=== PATIENT | female | born 1945 | race Caucasian/White ===

== ENCOUNTER 2020-08-28 10:41 | Day surgery (SDC) | payer MEDICARE, OTHER ==
[~2020-08-28] VITALS: Ht 157.5 cm; Wt 74.2 kg
[2020-08-28] VITALS (9 sets, daily range): BP systolic 104–140; BP diastolic 67–91; PULSE 63–82; TEMP 98.1
[2020-08-28] MEDS ORDERED: HCTZ12.5TAB PO (11:37)
[2020-08-28] MEDS ORDERED: COZAAR100 MG PO (11:37)
[2020-08-28] MEDS ORDERED: LEXAPRO 10MG10 MG PO (11:37)
[2020-08-28] MEDS ORDERED: TOPROL XL 50MG50 MG PO (11:37)
[2020-08-28] MEDS ORDERED: ASPIRIN E.C. 8181 MG PO (11:38)
[2020-08-28] MEDS ORDERED: TYLENOL PM EXTR1 TA1 PO (11:38)
[2020-08-28] MEDS ORDERED: PREDNISONE10 MG PO (11:39)
[2020-08-28 12:03] LABS: HEMATOCRIT 41.2 % (37.0-47.0); HEMOGLOBIN 14.4 g/dl (12.5-16.0); MEAN CELL VOLUME 92 fl (80.0-100.0); MEAN CORPUSCULAR HEMOGLOBIN 32 pg (27.0-31.0); MEAN CORPUSCULAR HGB CONC 35 g/dl (33.0-37.0); MEAN PLATELET VOLUME 8.3 fl (7.4-10.4); PLATELET COUNT 290 K/mm3 (130-400); REDCELL DISTRIBUTION WIDTH-CV 13.3 % (11.5-14.5)
[2020-08-28 12:07] LABS: PROTHROMBIN TIME 10.6 SECONDS (9.7-12.8)
[2020-08-28 12:10] LABS: PARTIAL THROMBOPLASTIN TIME 27.1 SECONDS (26.0-37.0)
[2020-08-28 12:19] LABS: CALCIUM 10.3 mg/dL (8.4-10.2); CREATININE, serum 0.84 (0.52-1.25); POTASSIUM 4.5 mmol/L (3.4-5.0)
--- NOTE | 2020-08-28 13:42 | NUR ---
SEE MEREGE FOR ALL MEDICATION ADMIN. TIMES, INTRA AND POST SEDATION ASSESSMENTS
--- NOTE | 2020-08-28 14:10 | NUR ---
Pt resting comfortably in bed. Drowsy, but wakes easily to name. Free of complaints at this time.
--- NOTE | 2020-08-28 14:30 | NUR ---
Pt's called and updated on pt's status per pt's request. Pt more alert, wakes as nurse enters room.
[2020-08-28] MEDS ORDERED: NORVASC 5MG5 MG/TAB PO (15:43)
[2020-08-28] MEDS ORDERED: PREDNISONE20 MG PO (15:47)
[2020-08-28] MEDS ORDERED: COZAAR 50MG50 MG/TAB PO (15:47)
--- NOTE | 2020-08-28 17:00 | NUR ---
DC instructions reviewed with pt in room, and again with at car. Pt was assisted out by wheelchair with personal belongings. Air was removed from TR band in 2-4 ml increments without issue or bleeding. Site dressed with folded 2x2 and covered with bandaid and wrapped with coban. IV was DC'd with catheter intact, and bleeding controlled at site.
== END 2020-08-28 17:02 | disposition home or self-care (01) ==
LOC: COL.CAR 10:41
PROVIDERS: Internal Medicine Cardiovascular Disease
DX: I25.10 Atherosclerotic heart disease of native coronary artery without angina pectoris (principal); Z88.0 Allergy status to penicillin; Z79.82 Long term (current) use of aspirin; Z88.8 Allergy status to other drugs, medicaments and biological substances; Z88.3 Allergy status to other anti-infective agents; Z91.013 Allergy to seafood
CPT/HCPCS: C1769; J1200; J1644; J2250; J3010; J7512; Q9967